=== PATIENT | male | born 1965 | race Caucasian/White ===

== ENCOUNTER 2018-07-27 17:06 | Observation (INO) | payer OTHER, SELFPAY ==
[~2018-07-27 17:06] MED LIST: ISOVUE-370 76%-LOCM 1 ML ONE
[2018-07-27 17:36] LABS: Base Excess-Venous 4.5 mmol/L (0 (+/- 2.5)); CO2 Tension (PvCO2) 56.2 mmHg (41.0-51.0); Calcium, Ionized 1.23 mmol/L (1.12-1.32); Hemoglobin - Calc 17.3 g/dL (12.0-18.0); O2 Tension (PvO2) 40.3 mmHg (35.0-45.0); Potassium 3.6 mmol/L (3.4-4.7); T. Carbon Dioxide 33.7 mmol/L (1.0-85.0); pH (Venous) 7.363 (7.35-7.45)
[2018-07-27 17:37] LABS: #Eosinphils 0.1 thou/uL (0.0-0.7); #Lymphocytes 1.9 thou/uL (1.20-3.40); #Monocytes 0.7 thou/uL (0.11-0.59); #Neutrophils 4.2 thou/uL (1.40-6.50); %Basophils 0.4 % (0.0-1.0); %Lymphocytes 26.8 % (21.0-51.0); %Monocytes 10.3 % (0.0-10.0); %Neutrophils 60.5 % (42.0-75.0); Mean Corpuscular HGB CONC 34.3 g/dL (32.0-36.0); Mean Corpuscular Hemoglobin 30.9 pg (27.0-31.0); Mean Corpuscular Volume 90.1 fL (78.0-98.0); Platelet Count 181 thou/uL (130-400); RBC Distribution Width 12.9 % (11.5-14.5); Red Blood Cell (RBC) Count 5.51 mill/uL (4.70-6.10)
[2018-07-27 17:42] LABS: PTT 25.4 SEC (22.9-36.1)
[2018-07-27 17:53] LABS: ALT (SGPT) 37 U/L (8-55); AST (SGOT) 26 U/L (5-34); Albumin 4.5 g/dL (3.5-5.0); Alkaline Phosphatase 60 U/L (40-150); Anion Gap 11 mmol/L (10-20); BUN (Urea Nitrogen) 16 mg/dL (8.4-25.7); Bilirubin, Total 0.9 mg/dL (0.2-1.2); CK (CPK) 350 U/L (30-200); Calc. Creatinine Clearance 0 mL/min (70-130); Calcium 9.5 mg/dL (7.8-10.44); Carbon Dioxide 28 mmol/L (22-29); Chloride 104 mmol/L (98-107); Estimated GFR-MDRD 77; Globulin 3.1 g/dL (2.4-3.5); Glucose 70 mg/dL (70-105); Potassium 3.7 mmol/L (3.5-5.1); Protein, Total 7.6 g/dL (6.0-8.3); Sodium 139 mmol/L (136-145)
[2018-07-27 17:56] LABS: Troponin I Less than 0.010 ng/mL (< 0.028)
[2018-07-27 17:59] LABS: CKMB 6.7 ng/mL (0-6.6)
--- NOTE | 2018-07-27 18:52 | RAD ---
CHEST 1 VIEW: Date: 07/27/18 COMPARISON: 09/25/13. HISTORY: Chest pain. FINDINGS: Normal cardiac silhouette. Lungs and pleural spaces are clear. No pneumothorax or osseous abnormaliti es. IMPRESSION: No acute cardiopulmonary process. POS: [facility]
--- NOTE | 2018-07-27 19:20 | CT ---
CTA OF CHEST WITH 3D VOLUME RENDERING, WITH CONTRAST CTA OF ABDOMEN AND PELVIS WITH 3D VOLUME RENDERING, WITH CONTRAST CT AORTOGRAM, WITH 3D VOLUME RENDERING, WITH CONTRAST 07/27/18 INDICATION: Chest pain. FINDINGS: There is aneurysmal dilatation of the ascending thoracic aorta measuring 4.8 cm in diameter. No evide nce of an acute dissection of the thoracoabdominal aorta. No periaortic hematoma is visualized. Scatt ered atelectasis and/or scarring is seen within the lungs. No acute abnormality of the imaged solid a bdominal organs. Scattered colonic diverticulosis. No free air or ascites. Scattered osseous degenera tive changes. IMPRESSION: Aneurysmal dilatation of the ascending thoracic aorta. No acute aortic dissection. POS: [facility]
[2018-07-27] MEDS ORDERED: Ondansetron HCl/PF 4 MG/2 ML Vial IVP PRN (20:21)
[2018-07-27] MEDS ORDERED: Ondansetron ODT 4 MG TAB SL PRN (20:21)
[2018-07-27] MEDS ORDERED: Acetaminophen 325 MG TAB PO PRN (20:21)
[2018-07-27] MEDS ORDERED: Aspirin 325 MG TAB PO SCH (20:30)
[2018-07-27 20:37] VITALS: BMI 34.3
[2018-07-28] MEDS: Sodium Chloride 0.9% 1,000 ML IV SCH ×2 (01:55→15:43)
--- NOTE | 2018-07-28 03:15 | HP ---
CHIEF COMPLAINT: Chest pain. HISTORY OF PRESENT ILLNESS: This is a 52-year-old male with past medical history of hypertension pre senting with chest pain which has been going on for a week. Per the patient, the chest pain has been dull, constant, substernal in nature and on the pain scale from 0-10 is 2/10, this is squeezing like pain. The patient states that he saw his primary care doctor on Thursday. The patient was then instr ucted to see Dr. Neff. Upon examining the patient, Dr. Nfef found that patient has 4.1 cm dilate d aortic root. Therefore, patient was instructed to come to the ED to get a CTA to rule out aortic d issection. The patient denies any headaches, shortness of breath, palpitations. REVIEW OF SYSTEMS: Positive for chest pain, otherwise as documented in the HPI. All other systems w ere reviewed and are negative. PAST MEDICAL HISTORY: Hypertension. FAMILY HISTORY: Significant for hypertension in both families. PAST SURGICAL HISTORY: Spinal surgery. PAST PSYCHIATRIC HISTORY: No previous psychiatric history. SOCIAL HISTORY: The patient drinks socially. The patient states that he quit smoking about 7 years ago. The patient has not had cigarette since then. The patient stated that when he used to smoke, h jessie has been smoked about 2 packs per day. ALLERGIES: No known drug allergies. CURRENT MEDICATIONS: The patient takes losartan and hydrochlorothiazide 100 mg/25 mg. PHYSICAL EXAMINATION: VITAL SIGNS: Blood pressure is 137/97, pulse 77, respiratory rate of 16, temperature of 97.8, and O2 sat of 97% on room air. GENERAL: The patient is alert, oriented x3, not in acute distress. The patient is speaking in full sentences. HEENT: Normocephalic, atraumatic. Pupils are equally round and reactive to light. Extraocular move ments are intact. No scleral icterus. No conjunctival hemorrhages. NECK: Supple. No JVD. Trachea is midline. CHEST: Lungs clear to auscultation bilaterally in the anterior and posterior lung mendoza. No wheezi ng, no rales, no rhonchi is appreciated. CARDIOVASCULAR: Positive S1, S2, regular rate and rhythm, no murmurs, no rubs, no gallops appreciate d. ABDOMEN: Positive bowel sounds in all quadrants, nondistended, nontender. No ecchymosis, no masses appreciated. EXTREMITIES: The patient has 5/5 upper extremity strength and 5/5 lower extremity strength with good pulses bilaterally at the upper and lower extremities. NEUROLOGIC: Cranial nerves II-XII grossly intact. No neurological deficits noted. SKIN: The patient does have tattoos at the upper extremities, lot of tattoos on the back and also at the chest. Otherwise, warm, dry, and intact. LABORATORY AND X-RAY FINDINGS: EKG that was done in the ED showed normal sinus rhythm with a rate of 76. Chest x-ray that was done showed no cardiopulmonary process. CTA showed distention of the asce nding aorta to 4.8 cm. WBC 7.0, hemoglobin 17.0, hematocrit is 49.6, platelets of 181. PT 13.0, INR is 1.0, PTT 25.4. Sodium 139, potassium 3.7, chloride 104, anion gap of 11, BUN of 16, creatinine o f 1.01. ALT is 37, AST is 26, alkaline phosphatase is 60, creatine kinase is 350, CK-MB is 6.7, trop onin is less than 0.010. ASSESSMENT AND PLAN: This is a 52-year-old male being admitted for: 1. Chest pain, rule out acute coronary syndrome. EKG is normal. 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 A workup was done and patient does not have any dissection at thi s time. We will make patient n.p.o. overnight. We will consult Cardiology for them to see the patie nt in the morning and for them to possibly do a cardiac catheterization and also to continue the roc mmendations from there. 2. Thoracic aortic aneurysm. The patient do have a 4.8 cm aortic aneurysm which has to be monitored every 2 years due to the size of the aneurysm. 3. History of hypertension. Currently, patient is on losartan and hydrochlorothiazide. The patient continued to take his medications. We will continue this medication. 4. Deep venous thrombosis and gastrointestinal prophylaxis. We will do Lovenox for deep venous thro mbosis prophylaxis and Pepcid for GI prophylaxis.
[2018-07-28 05:42] LABS: ALT (SGPT) 32 U/L (8-55); AST (SGOT) 21 U/L (5-34); Albumin 3.9 g/dL (3.5-5.0); Alkaline Phosphatase 52 U/L (40-150); Anion Gap 11 mmol/L (10-20); BUN (Urea Nitrogen) 20 mg/dL (8.4-25.7); Calc. Creatinine Clearance 175 mL/min (70-130); Calcium 8.8 mg/dL (7.8-10.44); Carbon Dioxide 23 mmol/L (22-29); Cardiac Risk 5.7 (Less than 4.5); Chloride 107 mmol/L (98-107); Cholesterol 189 mg/dl (< 200 Desired); Estimated GFR-MDRD Greater than 90; Globulin 2.7 g/dL (2.4-3.5); Glucose 115 mg/dL (70-105); HDL Cholesterol 33 mg/dL (>60 Neg Risk); LDL Cholesterol, Calculated 116 mg/dL; Potassium 3.7 mmol/L (3.5-5.1); Protein, Total 6.6 g/dL (6.0-8.3); Sodium 137 mmol/L (136-145); Triglycerides 202 mg/dL (Less than 150)
[2018-07-28 06:47] LABS: Troponin I Less than 0.010 ng/mL (< 0.028)
[2018-07-28 07:06] LABS: #Eosinphils 0.1 thou/uL (0.0-0.7); #Lymphocytes 1.3 thou/uL (1.20-3.40); #Monocytes 0.6 thou/uL (0.11-0.59); #Neutrophils 3.8 thou/uL (1.40-6.50); %Basophils 0.3 % (0.0-1.0); %Eosinophils 2.3 % (0.0-10.0); %Lymphocytes 22.5 % (21.0-51.0); %Monocytes 9.7 % (0.0-10.0); %Neutrophils 65.2 % (42.0-75.0); Hemoglobin 16.3 g/dL (14.0-18.0); Mean Corpuscular Hemoglobin 29.7 pg (27.0-31.0); Mean Corpuscular Volume 90.1 fL (78.0-98.0); Mean Platelet Volume 9.8 fL (7.4-10.4); Platelet Count 139 thou/uL (130-400); Red Blood Cell (RBC) Count 5.47 mill/uL (4.70-6.10); White Blood Cell (WBC) Count 5.8 thou/uL (4.8-10.8)
[2018-07-28] MEDS ORDERED: Hydrochlorothiazide 25 MG TAB PO SCH (09:00)
[2018-07-28] MEDS ORDERED: Losartan 25 MG TAB PO SCH (09:00)
[2018-07-28] MEDS ORDERED: Non-Formulary Item 1 EACH (Losartan/Hydrochlorothiazide [Losartan-Hctz 100-12.5 Mg Tab] 1 PO SCH (09:00)
[2018-07-28] MEDS ORDERED: Enoxaparin Sodium 40 MG/0.4 ML SYRINGE SC SCH (09:00)
[2018-07-28] MEDS ORDERED: Famotidine 20 MG TAB PO SCH (09:00)
[2018-07-28] MEDS ORDERED: Aspirin 81 mg Enteric Coated Tablet PO SCH (09:00)
[2018-07-28 13:41] VITALS: BP 140/62; TEMP 98.2
--- NOTE | 2018-07-28 15:37 | DIS ---
DATE OF DISCHARGE: 07/28/2018 DISCHARGE DISPOSITION: Home. FOLLOWUP: Follow up with primary care physician, Dr. Mae in 1 week. Follow up with Cardiology, Dr Husam Neff. The patient was seen on the day of discharge. Denies any new complaints. No chest pain, shortness o f breath, palpitations. INPATIENT CONSULTANTS: Cardiology, Dr. Neff. BRIEF HOSPITAL COURSE: The patient is a 52-year-old male with hypertension, who presented to the [facility] room with chest discomfort. He was sent to the emergency room from Dr. Neff's office to rul e out aortic dissection. Please refer to the history and physical for further details. The patient was admitted to the hospital with a diagnosis of chest discomfort, rule out acute coronar y syndrome. Serial troponins remain negative. The patient was seen by Cardiology, Dr. Neff. He u nderwent a stress test that was negative for reversible ischemia. Ejection fraction was 49%. The ca se was discussed with Dr. Neff after the stress test. Dr. Neff recommended increasing losartan/H CTZ 100/25. The patient recently filled this prescription for losartan/HCTZ 100/12.5 recently. A pr escription for HCTZ 12.5 mg has been sent to the pharmacy. He has been cleared by Dr. Neff for dis charge. Light activities was recommended by Dr. Neff for a week. Plan of care was discussed with the patient in detail. He stated understanding. DIAGNOSTIC TEST: Fasting lipid showed triglyceride 202, cholesterol 189, LDL 116, HDL 33. TSH of 2. 9. Please note that statins were not started due to elevated CK at 350 with elevated CK-MB of 6.7. FINAL DIAGNOSES: 1. Chest discomfort, acute coronary syndrome ruled out. 2. Negative Cardiolite stress test. 3. Hyperlipidemia. 4. Thoracic aortic aneurysm 4.8 cm. 5. Former smoker. 6. Obesity with a BMI 34.3. Plan of care was discussed with the patient in detail. He stated understanding.
--- NOTE | 2018-07-28 15:59 | NM ---
NUCLEAR MEDICINE CARDIAC STRESS TEST WITH EJECTION FRACTION: HISTORY: Chest pain. COMPARISON: None. TECHNIQUE: Stress and rest was performed after the intravenous administration of 29 and 9 mCi technetium-99m ses tamibi. FINDINGS: There is normal left ventricular uptake of the radiotracer. No evidence of scar or ischemia. Ejection fraction is 49%. IMPRESSION: 1. No evidence of scar or ischemia. 2. Abnormally low ejection fraction of 49%. POS: [facility]
[2018-07-28] MEDS ORDERED: Regadenoson 0.4 MG/5 ML SYRINGE ONE (16:04)
--- NOTE | 2018-07-28 19:03 | CON ---
DATE OF CONSULTATION: 07/28/2018 HISTORY OF PRESENT ILLNESS: Mr. Tovar was seen yesterday in the office for the first time for lef t-sided chest pain. He had an emergent echocardiogram at that time for ongoing chest pain. He was f ound to have a dilated aortic root with a possible inferior hypokinesis, so he was sent to the ER for concern for dissection. In the ER, he had a CT angio that showed no evidence of dissection, but he had a dilated root at 4.8 cm. On the echo, it also showed a bicuspid aortic valve with moderate aort ic stenosis. He was admitted for a rule out. Troponins remain negative x3, so a nuclear stress was performed earlier today that showed normal LV function at 50% and no evidence of reversible ischemia. I spoke at length with him about the need to follow up on his aortic root and the need to control h is blood pressure. PAST MEDICAL HISTORY: Hypertension. FAMILY HISTORY: Hypertension. PAST SURGICAL HISTORY: Spinal surgery. SOCIAL HISTORY: Drinks socially. Quit smoking 7 years ago. ALLERGIES: No known drug allergies. OUTPATIENT MEDICATION: Losartan/hydrochlorothiazide 100/12.5 mg a day. ALLERGIES: No known drug allergies. REVIEW OF SYSTEMS: Twelve-point review of systems was done and is all negative unless stated in the history of present illness. PHYSICAL EXAMINATION: VITAL SIGNS: Temperature 98.2, pulse 64, respiratory rate 20, saturating 94% on room air, blood pres sure 140/62. GENERAL: Awake, alert, oriented x3, in no distress. HEENT: Normocephalic, atraumatic. NECK: Supple. LUNGS: Clear. CARDIOVASCULAR: S1, S2. No S3 or S4. No murmurs. ABDOMEN: Soft. Positive bowel sounds. EXTREMITIES: No edema. SKIN: Warm and dry. LABORATORY DATA: Laboratory work was reviewed. Troponin has been negative x3. CK-MB was high at 6. 7. Coags were negative. CBC was unremarkable. Nuclear stress test showed an EF of 49%, very close to normal, with no evidence of reversible ischemi a. TID was normal. ASSESSMENT AND PLAN: 1. Chest pain: Ongoing pain for several days with no evidence of any troponin leak, most likely mus culoskeletal; however, he does have aortic stenosis, which is moderate, and a dilated aortic root. H e will need close followup to control his blood pressure. We would increase his losartan/HCTZ to 100 /25 from 12.5. We will see him in the office in 1 month. 2. If he continues to have chest pain in the next few weeks, he will most likely need a heart cathet erization at that time.
--- NOTE | 2018-07-31 17:06 | EKG ---
Test Reason : Blood Pressure : / mmHG Vent. Rate : 076 BPM Atrial Rate : 076 BPM P-R Int : 176 ms QRS Dur : 088 ms QT Int : 338 ms P-R-T Axes : 051 012 093 degrees QTc Int : 380 ms Sinus rhythm with occasional Premature ventricular complexes Nonspecific T wave abnormality Abnormal ECG Confirmed by RUSSELL PENA, JOSHUA ([id number]), avid editor IRVING ALAN ([id number]) on 07/31/2018 5:05:20 PM Referred By: Confirmed By:JOSHUA WELLS MD
== END 2018-07-28 17:29 | disposition home or self-care (01) ==
LOC: ERS 17:06 → 2SW 19:11
PROVIDERS: ADMIT Internal Medicine; ATTEND Internal Medicine
DX: R07.89 Other chest pain (principal); I10 Essential (primary) hypertension; I71.2 Thoracic aortic aneurysm, without rupture; E78.5 Hyperlipidemia, unspecified; E66.9 Obesity, unspecified; Z68.34 Body mass index [BMI] 34.0-34.9, adult; Z87.891 Personal history of nicotine dependence; Z79.899 Other long term (current) drug therapy
CPT/HCPCS: 36415; 71045; 71275; 78452; 80053; 80061; 82330; 82553; 82803; 83605; 84443; 84484; 85025; 85610; 85730; 90471; 90686; 93005; 93017; 96360; 96361; A4216; A9500; G0008; G0378; J2785

== ENCOUNTER 2018-12-30 08:30 | Outpatient (CLI) | payer OTHER ==
[2018-12-30] MEDS ORDERED: ISOVUE-370 76%-LOCM 1 ML ONE (09:47)
--- NOTE | 2018-12-30 10:11 | CT ---
CT ABDOMEN AND PELVIS WITH CONTRAST: History: Epigastric pain. History of Hepatitis C. Screening for colon cancer. Technique: Contrast enhanced CT images of the abdomen and pelvis were obtained after the administrati on of IV and oral contrast. FINDINGS: The lung bases are unremarkable. Calcifications seen in the aortic valve. The liver and spleen are unremarkable. The pancreas and gallbladder are unremarkable. Adrenal glands and kidneys unremarkable. No dilated loops of small bowel seen. Normal appendix is visualized. The colon demonstrates no significant abnormalities or lesions. The left renal vein is retroaortic. Multilevel lumbar facet degenerative changes seen. IMPRESSION: Unremarkable contrast enhanced CT images of the abdomen and pelvis. POS: [facility]
== END 2018-12-30 08:31 | disposition home or self-care (01) ==
LOC: BICCT 08:30
PROVIDERS: ATTEND Internal Medicine Gastroenterology
DX: R10.13 Epigastric pain (principal); R76.8 Other specified abnormal immunological findings in serum; Z12.11 Encounter for screening for malignant neoplasm of colon
CPT/HCPCS: 74177; Q9966

== ENCOUNTER 2019-08-25 10:13 | Outpatient (CLI) | payer OTHER ==
--- NOTE | 2019-08-25 12:14 | CT ---
CTA CHEST WITH AND WITHOUT CONTRAST: INDICATIONS: Follow up ascending aortic aneurysm. COMPARISON: CT chest from 07/27/2018. TECHNIQUE: Axial tomograms obtained through the chest without IV enhancement. This was followed by axial tomogra ms with IV contrast following angio protocol with multiplanar reconstruction and 3D post processing. FINDINGS: Aneurysmal dilatation of the ascending aorta is again noted. The diameter in the coronal plane is rec orded at 4.7 cm, unchanged from prior exam. Axial diameter is recorded at 4.9 cm, unchanged from prio r exam. There is no evidence of dissection. The descending thoracic aorta measures approximately 2.8 cm and is unchanged. The pulmonary arteries are opacified and appear unremarkable. No proximal pulmonary embolus. The lung mendoza are clear. No infiltrate or effusion. The mediastinum is otherwise unremarkable witho ut evidence of adenopathy. Images through the upper abdomen are unremarkable. IMPRESSION: Mild aneurysmal dilatation of the ascending abdominal aorta is stable in appearance when compared to 07/27/2018. CT chest is otherwise unremarkable without evidence of acute abnormality. POS: [facility]
== END 2019-08-25 10:14 | disposition home or self-care (01) ==
LOC: BICCT 10:13
PROVIDERS: ATTEND Internal Medicine Cardiovascular Disease
DX: I71.2 Thoracic aortic aneurysm, without rupture (principal)
CPT/HCPCS: 71275

== ENCOUNTER 2021-07-08 19:00 | Outpatient (CLI) | payer OTHER | END 2021-07-08 19:01 | disposition home or self-care (01) | LOC: SLEEPLAB 19:00 | PROVIDERS: ATTEND Internal Medicine Cardiovascular Disease | DX: G47.33 Obstructive sleep apnea (adult) (pediatric) (principal); E66.9 Obesity, unspecified; I10 Essential (primary) hypertension | CPT/HCPCS: 95811 ==

== ENCOUNTER 2022-06-26 07:45 | Outpatient (CLI) | payer OTHER | END 2022-06-26 07:46 | disposition home or self-care (01) | LOC: CT 07:45 | PROVIDERS: ATTEND Internal Medicine Cardiovascular Disease | DX: I71.2 Thoracic aortic aneurysm, without rupture (principal) | CPT/HCPCS: 71275 ==

== ENCOUNTER 2023-06-30 07:41 | Outpatient (CLI) | payer BC, OTHER ==
[2023-06-30] MEDS ORDERED: Iopamidol-370 76% 500 ML MDV (1 ML CHARGE) ONE (10:49)
== END 2023-06-30 07:42 | disposition home or self-care (01) ==
LOC: BICCT 07:41
PROVIDERS: ATTEND Internal Medicine Cardiovascular Disease
DX: I71.21 Aneurysm of the ascending aorta, without rupture (principal)
CPT/HCPCS: 71275; 82565; Q9967

== ENCOUNTER 2023-12-11 13:41 | Outpatient (CLI) | payer OTHER | END 2023-12-11 13:42 | disposition home or self-care (01) | LOC: BICRAD 13:41 | PROVIDERS: ATTEND Internal Medicine Cardiovascular Disease | DX: Z48.812 Encounter for surgical aftercare following surgery on the circulatory system (principal); Z95.2 Presence of prosthetic heart valve | CPT/HCPCS: 71046 ==